=== PATIENT | male | born 1990 ===

== ENCOUNTER → 2017-04-03 | Outpatient (CLI) | payer OTHER | LOC: BMCIMAGING 13:26 → EDSTATUS 13:27 | PROVIDERS: ATTEND Family Medicine | DX: M25.532 Pain in left wrist (principal); M25.511 Pain in right shoulder; S62.035K Nondisplaced fracture of proximal third of navicular [scaphoid] bone of left wrist, subsequent encounter for fracture with nonunion; V00.311A Fall from snowboard, initial encounter ==

== ENCOUNTER → 2017-04-07 | Outpatient (CLI) | payer OTHER | LOC: FIMAGING 10:29 | PROVIDERS: ATTEND Orthopaedic Surgery Hand Surgery | DX: S43.206A Unspecified dislocation of unspecified sternoclavicular joint, initial encounter (principal) ==